=== PATIENT | female | born 1950 | race Caucasian/White ===

== ENCOUNTER 2022-09-15 10:38 | Emergency (ER) | payer MEDICARE ==
[~2022-09-15] VITALS: Ht 167.6 cm; Wt 82.0 kg
[2022-09-15 10:55] VITALS: BP 144/74
[2022-09-15 11:33] VITALS: BP 143/77
[2022-09-15 11:53] LABS: URINE BILIRUBIN - DIPSTICK NEGATIVE (NEGATIVE); URINE BLOOD DIPSTICK SMALL (NEGATIVE); URINE COLOR YELLOW; URINE GLUCOSE - DIPSTICK NEGATIVE (NEGATIVE); URINE KETONE NEGATIVE (NEGATIVE); URINE LEUK ESTERASE SMALL (NEGATIVE); URINE NITRITE - DIPSTICK POSITIVE (Negative); URINE PROTEIN - DIPSTICK 30 mg/dL (NEG-TRACE); URINE SPECIFIC GRAVITY 1.025; URINE UROBILINOGEN - DIPSTICK 0.2 E.U./dL (0.2)
[2022-09-15 11:58] LABS: URINE BACTERIA MANY hpf; URINE SQUAMOUS EPITHELIAL CELL FEW EPI/hpf (0-FEW)
[2022-09-15 12:00] VITALS: BP 138/70
[2022-09-15] MEDS ORDERED: NITROFURANTN100 MG PO (12:07)
== END 2022-09-15 12:24 | disposition home or self-care (01) ==
LOC: ED 10:38
PROVIDERS: Family Medicine
DX: N39.0 Urinary tract infection, site not specified (principal); I10 Essential (primary) hypertension; B96.20 Unspecified Escherichia coli [E. coli] as the cause of diseases classified elsewhere; Z16.12 Extended spectrum beta lactamase (ESBL) resistance; Z87.440 Personal history of urinary (tract) infections

== ENCOUNTER 2023-01-27 13:04 | Emergency (ER) | payer MEDICARE, MEDICAID ==
[2023-01-27] VITALS (12 sets, daily range): BP systolic 148–185; BP diastolic 78–96
[~2023-01-27] VITALS: Ht 167.6 cm; Wt 78.0 kg
[~2023-01-27 13:04] MED LIST: NITROFURANTN100 MG PO
[2023-01-27] MEDS ORDERED: LEVOTHYROXIN125 MCG PO (13:26)
[2023-01-27] MEDS ORDERED: ABILIFY10 MG PO (13:28)
[2023-01-27] MEDS ORDERED: OXYCONTIN40 MG PO (13:28)
[2023-01-27] MEDS ORDERED: AMBIEN10 MG PO (13:28)
[2023-01-27] MEDS ORDERED: OXYBUTYNIN CHLOR5 M2 PO (13:29)
[2023-01-27] MEDS ORDERED: LEXAPRO20 MG PO (13:30)
[2023-01-27] MEDS ORDERED: NEURONTIN100 MG PO (13:30)
[2023-01-27] MEDS ORDERED: ASPIRINCHW 81MG PO (13:31)
[2023-01-27 13:59] LABS: URINE BILIRUBIN - DIPSTICK Negative (NEGATIVE); URINE BLOOD DIPSTICK Negative (NEGATIVE); URINE COLOR Yellow; URINE GLUCOSE - DIPSTICK Negative (NEGATIVE); URINE KETONE Negative (NEGATIVE); URINE LEUK ESTERASE Small (NEGATIVE); URINE NITRITE - DIPSTICK Negative (Negative); URINE PROTEIN - DIPSTICK Negative (NEG-TRACE); URINE UROBILINOGEN - DIPSTICK 0.2 E.U./dL (0.2)
[2023-01-27 14:12] LABS: URINE BACTERIA MANY hpf; URINE SQUAMOUS EPITHELIAL CELL FEW EPI/hpf (0-FEW)
[2023-01-27] MEDS ORDERED: KEFLEX500 MG PO (15:40)
== END 2023-01-27 16:25 | disposition home or self-care (01) ==
LOC: ED 13:04
PROVIDERS: Family Medicine
DX: N39.0 Urinary tract infection, site not specified (principal); I10 Essential (primary) hypertension; J45.909 Unspecified asthma, uncomplicated; R32 Unspecified urinary incontinence; Z88.0 Allergy status to penicillin; Z87.440 Personal history of urinary (tract) infections

== ENCOUNTER 2023-01-30 12:50 | Observation (INO) | payer MEDICARE, MEDICAID ==
[~2023-01-30] VITALS: Ht 167.6 cm; Wt 81.0 kg
[2023-01-30] VITALS (15 sets, daily range): BP systolic 142–176; BP diastolic 68–85
[~2023-01-30 12:50] MED LIST changes: +ABILIFY10 MG PO; +AMBIEN10 MG PO; +ASPIRINCHW 81MG PO; +KEFLEX500 MG PO; +LEVOTHYROXIN125 MCG PO; +LEXAPRO20 MG PO; +NEURONTIN100 MG PO; +OXYBUTYNIN CHLOR5 M2 PO; +OXYCONTIN40 MG PO
--- NOTE | 2023-01-30 12:55 | NUR ---
PT STRAIGHT TO ER BATHROOM TO OBTAIN A URINE SAMPLE. PT WALKED WITH A STEADY GAIT.
--- NOTE | 2023-01-30 13:08 | NUR ---
PT TO ER ROOM 7 WITH A STEADY GAIT.
[2023-01-30 13:33] LABS: BASO% 1.7 % (0-3); EOS% 3.1 % (0-8); HEMATOCRIT 38.9 % (37.0-47.0); HEMOGLOBIN 12.7 g/dl (12.0-16.0); IMMATURE GRANULOCYTES 0.2 % (0.0-5.0); LYMPH% 30.5 % (15-41); MEAN CELL VOLUME 86.6 fL CALC (80.0-100.0); MEAN CORPUSCULAR HGB 28.3 pG CALC (26.0-32.0); MEAN CORPUSCULAR HGB CONC 32.6 g/dL CAL (32.0-36.0); MONO% 7.6 % (2-13); NEUT# 2.39 thou/uL (2.00-7.15); NEUT% 56.9 % (42-76); RED BLOOD COUNT 4.49 mill/uL (4.20-5.60); RED CELL DISTRI WIDTH 15.3 % (11.5-15.5)
[2023-01-30 13:34] LABS: URINE BILIRUBIN - DIPSTICK Negative (NEGATIVE); URINE BLOOD DIPSTICK Negative (NEGATIVE); URINE GLUCOSE - DIPSTICK Negative (NEGATIVE); URINE KETONE Negative (NEGATIVE); URINE NITRITE - DIPSTICK Positive (Negative); URINE PROTEIN - DIPSTICK 30 mg/dL (NEG-TRACE); URINE SPECIFIC GRAVITY 1.015
[2023-01-30 13:35] LABS: URINE COLOR Yellow; URINE LEUK ESTERASE Small (NEGATIVE)
[2023-01-30 13:36] LABS: ALBUMIN 3.9 g/dL (3.2-5.0); ALKALINE PHOSPHATASE 93 u/l (38-126); BUN 8 mg/dL (8-23); BUN/CREATININE RATIO 10 (12-20 (CALC)); CHLORIDE 110 mmol/l (95-108); CREATININE 0.9 mg/dL (0.5-1.0); GFR FOR AFR.AMER. > 60 ML/MIN (>=60 (CALC)); GFR OTHER RACES > 60 ML/MIN (>=60 (CALC)); POTASSIUM 3.3 mmol/l (3.5-5.1); SGOT/AST 35 u/l (9-36); SODIUM 140 mmol/l (137-146); TOTAL PROTEIN 6.8 g/dL (6.3-8.2)
[2023-01-30 13:37] LABS: URINE RBC 0-2 RBC/hpf (0-5)
[2023-01-30 13:38] LABS: URINE CALCIUM OXALATE CRYSTALS MODERATE lpf
--- NOTE | 2023-01-30 13:38 | NUR ---
MD AT BEDSIDE, DISCUSSED PLAN OF CARE TO ADMIT, PATIENT WISHES TO PROCEED. SHE HAD INITIAL CONCERN REGARDING CARE OF HER ANIMALS, HOWEVER AFTER DISCUSSING AMA AND RISKS ASSOCIATED SHE DECIDED TO STAY AND PROCEED WITH ADMISSION.
[2023-01-30 13:40] LABS: URINE BACTERIA MODERATE hpf
[2023-01-30 13:43] LABS: ANION GAP 13 (6-22 (CALC)); BILIRUBIN, TOTAL 0.4 mg/dL (0.02-1.3); CARBON DIOXIDE 20 mmol/l (22-30)
--- NOTE | 2023-01-30 13:48 | NUR ---
PT UP TO BATHROOM
--- NOTE | 2023-01-30 14:30 | NUR ---
PT DOWN TO CT
--- NOTE | 2023-01-30 14:43 | NUR ---
PT IS UNABLE TO VERIFY HIS DAILY MEDICATIONS WITH ME. PT DENIES KNOWING THE NAMES OR DOSAGES. PT STATES HE TAKES ATLEAST 14 MEDIACTIONS. UNK ATE AND TIME PLACED ON MEDICATIONS. PRT WAS UNABLE TO VERIFY MEDIACTIONS WHEN READ TO HIM, UNK DATE AND TIMES RECONCILED.
--- NOTE | 2023-01-30 14:50 | NUR ---
PT BACK FROM CT. MEDIACTED PER eMAR.
--- NOTE | 2023-01-30 15:19 | NUR ---
PT RESTING IN BED. DENIES ANY NEEDS AT THIS TIME.
--- NOTE | 2023-01-30 16:35 | NUR ---
INNA GARDINER UPON REQUEST.
--- NOTE | 2023-01-30 16:39 | NUR ---
ASSISSTED PATIENT TO BSC.
--- NOTE | 2023-01-30 16:50 | NUR ---
ASSISTED PT BACK TO BED, EDUCATED ON CONT WAIT TIME. SHE STATED UNDERSTANDING.
--- NOTE | 2023-01-30 17:06 | NUR ---
REPORT CALLED AND GIVEN TO EDEL ON MS2. PT BEING TAKEN UP VIA WHEELCHAIR.
--- NOTE | 2023-01-30 18:14 | NUR ---
RECEIVE ADMISSION FROM ER. REPORT FROM MAYLIN GOLD. PT ALERT AND ORIENTED X3. DOES NOT REFER PAIN OR DISCOMFORT AT THIS TIME. PT IS EDUCATED ABOUD ADMISSION, MEDICATIONS AND NURSING PLAN. PT REFER UNDERSTAND. SAFETY AND FALL PRECAUTIONS IN PLACE. CALL LIGHT WITHIN IN REACH.
[2023-01-30] MEDS ORDERED: OXYCODONE20 M1 PO (22:14)
--- NOTE | 2023-01-31 01:20 | NUR ---
PT ALERT AND ORIENTED X 3. AMBUALTES WELL TO BATHROOM. VOIDING WITHOUT DIFFICULTY. IV FLUIDS INFUSING VIA #22 SALINE LOCK LEFT HAND. ROLANDO PO FLUIDS WELL. ON TELE. VSS. SAFETY PRECAUTIONS MAINTAINED. CALL LIGHT IN MARGOTH.
[2023-01-31 04:05] VITALS: BP 135/62
[2023-01-31 04:45] LABS: BASO% 1.7 % (0-3); EOS% 4.1 % (0-8); HEMOGLOBIN 11.7 g/dl (12.0-16.0); LYMPH% 46.5 % (15-41); MEAN CELL VOLUME 87.8 fL CALC (80.0-100.0); MEAN CORPUSCULAR HGB 28.5 pG CALC (26.0-32.0); MEAN CORPUSCULAR HGB CONC 32.5 g/dL CAL (32.0-36.0); MONO% 9.5 % (2-13); NEUT# 1.78 thou/uL (2.00-7.15); NEUT% 38.2 % (42-76); RED BLOOD COUNT 4.1 mill/uL (4.20-5.60); RED CELL DISTRI WIDTH 15.5 % (11.5-15.5)
[2023-01-31 05:09] LABS: ALKALINE PHOSPHATASE 81 u/l (38-126); ANION GAP 10 (6-22 (CALC)); BILIRUBIN, TOTAL 0.4 mg/dL (0.02-1.3); BUN 7 mg/dL (8-23); BUN/CREATININE RATIO 8 (12-20 (CALC)); CARBON DIOXIDE 20 mmol/l (22-30); CHLORIDE 115 mmol/l (95-108); CREATININE 0.9 mg/dL (0.5-1.0); GFR FOR AFR.AMER. > 60 ML/MIN (>=60 (CALC)); GFR OTHER RACES > 60 ML/MIN (>=60 (CALC)); MAGNESIUM 2.1 mg/dL (1.6-2.3); POTASSIUM 3.4 mmol/l (3.5-5.1); SGOT/AST 28 u/l (9-36); SODIUM 141 mmol/l (137-146); TOTAL PROTEIN 5.6 g/dL (6.3-8.2)
[2023-01-31 05:12] LABS: ALBUMIN 3.1 g/dL (3.2-5.0)
[2023-01-31 07:57] VITALS: BP 139/71
--- NOTE | 2023-01-31 08:00 | NUR ---
PATIENT SITTING UP IN BED. DENIES PAIN. LUNGS CLEAR TO ASCULTATION. BREATHING EVEN AND UNLABORED. RA. NAD DISTRESS NOTED. WILL CONTINUE TO MONITOR.
[2023-01-31 10:35] VITALS: BP 133/55
--- NOTE | 2023-01-31 12:00 | NUR ---
PATIENT SITTING UP IN BED WATCHING TV. NAD NOTED. BED IN LOW POSITION. CALL LIGHT WITHIN REACH. WILL CONTINUE TO MONTIOR.
[2023-01-31] MEDS ORDERED: ERTAPENEM1 G1 IV (12:25)
[2023-01-31] MEDS ORDERED: FLUCONAZOLE150 MG PO (12:26)
[2023-01-31] MEDS ORDERED: FLORASTOR250 M1 PO (12:27)
--- NOTE | 2023-01-31 15:15 | NUR ---
Discharge instructions given. Patient verbalizes understanding of same. Discharged in stable condition via Wheelchair to Home with staff. All belongings sent with pt.
== END 2023-01-31 15:15 | disposition home or self-care (01) ==
LOC: ED 12:50 → ED-I 13:48 → ED 13:48 → ED-I 15:59 → ED 16:14 → MS2 16:15
PROVIDERS: Family Medicine; Nurse Practitioner Family; ADMIT Student in an Organized Health Care Education/Training Program; ATTEND Student in an Organized Health Care Education/Training Program
DX: N39.0 Urinary tract infection, site not specified (principal); B96.20 Unspecified Escherichia coli [E. coli] as the cause of diseases classified elsewhere; B37.31 Acute candidiasis of vulva and vagina; I10 Essential (primary) hypertension; E03.9 Hypothyroidism, unspecified; J45.909 Unspecified asthma, uncomplicated; M79.7 Fibromyalgia; Z16.12 Extended spectrum beta lactamase (ESBL) resistance; Z87.440 Personal history of urinary (tract) infections; Z20.822 Contact with and (suspected) exposure to COVID-19
CPT/HCPCS: J1335; J1650; Q9967

== ENCOUNTER 2023-06-10 12:31 | Emergency (ER) | payer MEDICARE, MEDICAID ==
[2023-06-10] VITALS (7 sets, daily range): BP systolic 121–149; BP diastolic 67–79
[~2023-06-10] VITALS: Ht 170.2 cm; Wt 78.4 kg
[~2023-06-10 12:31] MED LIST changes: +ERTAPENEM1 G1 IV; +FLORASTOR250 M1 PO; +FLUCONAZOLE150 MG PO; +OXYCODONE20 M1 PO
[2023-06-10 13:16] LABS: URINE BILIRUBIN - DIPSTICK Negative (NEGATIVE); URINE BLOOD DIPSTICK Small (NEGATIVE); URINE COLOR Yellow; URINE GLUCOSE - DIPSTICK Negative (NEGATIVE); URINE KETONE Trace mg/dL (NEGATIVE); URINE LEUK ESTERASE Small (NEGATIVE); URINE NITRITE - DIPSTICK Negative (Negative); URINE PROTEIN - DIPSTICK Trace mg/dL (NEG-TRACE); URINE SPECIFIC GRAVITY 1.025; URINE UROBILINOGEN - DIPSTICK 0.2 E.U./dL (0.2)
[2023-06-10 13:25] LABS: URINE BACTERIA MANY hpf; URINE SQUAMOUS EPITHELIAL CELL FEW EPI/hpf (0-FEW); URINE WBC 50-100 WBC/hpf (0-5)
[2023-06-10] MEDS ORDERED: FOSFOMYCIN TROME3 GM PO (13:48)
== END 2023-06-10 15:09 | disposition home or self-care (01) ==
LOC: ED 12:31
PROVIDERS: Nurse Practitioner
DX: N39.0 Urinary tract infection, site not specified (principal); B96.20 Unspecified Escherichia coli [E. coli] as the cause of diseases classified elsewhere; Z16.12 Extended spectrum beta lactamase (ESBL) resistance; Z87.440 Personal history of urinary (tract) infections
CPT/HCPCS: J1335

== ENCOUNTER 2023-07-13 08:08 | Emergency (ER) | payer MEDICARE ==
[~2023-07-13] VITALS: Ht 170.2 cm; Wt 79.2 kg
[2023-07-13] VITALS (14 sets, daily range): BP systolic 157–185; BP diastolic 70–96
[~2023-07-13 08:08] MED LIST changes: +FOSFOMYCIN TROME3 GM PO
[2023-07-13 09:12] LABS: URINE BILIRUBIN - DIPSTICK Negative (NEGATIVE); URINE BLOOD DIPSTICK Trace-intact (NEGATIVE); URINE GLUCOSE - DIPSTICK Negative (NEGATIVE); URINE KETONE Negative (NEGATIVE); URINE NITRITE - DIPSTICK Negative (Negative); URINE PROTEIN - DIPSTICK Negative (NEG-TRACE); URINE UROBILINOGEN - DIPSTICK 0.2 E.U./dL (0.2)
[2023-07-13 09:14] LABS: URINE COLOR Yellow; URINE LEUK ESTERASE Large (NEGATIVE)
[2023-07-13 09:18] LABS: URINE RBC 0-2 RBC/hpf (0-5)
[2023-07-13 09:19] LABS: URINE BACTERIA MANY hpf; URINE SQUAMOUS EPITHELIAL CELL FEW EPI/hpf (0-FEW)
[2023-07-13] MEDS ORDERED: LISINOPRIL 10 MG/TAB PO ONE (09:20)
[2023-07-13 09:44] LABS: BASO% 0.7 % (0-3); EOS% 4.2 % (0-8); HEMATOCRIT 40.7 % (37.0-47.0); LYMPH% 24.8 % (15-41); MEAN CELL VOLUME 91.1 fL CALC (80.0-100.0); MEAN CORPUSCULAR HGB 29.1 pG CALC (26.0-32.0); MEAN CORPUSCULAR HGB CONC 31.9 g/dL CAL (32.0-36.0); MONO% 8.4 % (2-13); NEUT# 2.82 thou/uL (2.00-7.15); NEUT% 61.9 % (42-76); RED BLOOD COUNT 4.47 mill/uL (4.20-5.60)
[2023-07-13 10:03] LABS: ALBUMIN 3.9 g/dL (3.2-5.0); ALKALINE PHOSPHATASE 100 u/l (38-126); ANION GAP 6 (6-22 (CALC)); BILIRUBIN, TOTAL 0.5 mg/dL (0.02-1.3); BUN 8 mg/dL (8-23); BUN/CREATININE RATIO 9 (12-20 (CALC)); CARBON DIOXIDE 32 mmol/l (22-30); CHLORIDE 106 mmol/l (95-108); CREATININE 0.9 mg/dL (0.5-1.0); GFR FOR AFR.AMER. > 60 ML/MIN (>=60 (CALC)); GFR OTHER RACES > 60 ML/MIN (>=60 (CALC)); SGOT/AST 30 u/l (9-36); SODIUM 139 mmol/l (137-146); TOTAL PROTEIN 6.3 g/dL (6.3-8.2)
[2023-07-13 10:05] LABS: POTASSIUM 4.5 mmol/l (3.5-5.1)
[2023-07-13] MEDS ORDERED: NITROFURANTN100 MG PO (11:25)
[2023-07-13] MEDS ORDERED: LISINOPRIL10 MG PO (11:26)
[2023-07-14] MEDS ORDERED: LISINOPRIL10 MG PO (11:40)
== END 2023-07-13 11:34 | disposition home or self-care (01) ==
LOC: ED 08:08
PROVIDERS: Emergency Medicine
DX: N39.0 Urinary tract infection, site not specified (principal); I10 Essential (primary) hypertension; T46.5X6A Underdosing of other antihypertensive drugs, initial encounter; Z91.128 Patient's intentional underdosing of medication regimen for other reason; Z95.5 Presence of coronary angioplasty implant and graft; Z87.440 Personal history of urinary (tract) infections